=== PATIENT | female | born 1990 | race Caucasian/White ===

== ENCOUNTER 2018-06-03 16:20 | Inpatient (IN) | payer BC ==
[2018-06-03] MEDS ORDERED: Water For Irrigation,Sterile 1,000 ML Container IRR PRN (16:30)
[2018-06-03] MEDS ORDERED: Tranexamic Acid 1,000 MG in Sodium Chloride 0.9% 100 ML IV PRN (16:30)
[2018-06-03] MEDS ORDERED: Misoprostol 200 MCG Tab PO PRN (16:30)
[2018-06-03] MEDS ORDERED: Sodium Chloride 0.9% 2.5 ML Syringe FLUSH PRN (16:30)
[2018-06-03] MEDS ORDERED: Butorphanol 1 MG/ML SDV IVPUSH PRN (16:30)
[2018-06-03] MEDS ORDERED: Carboprost Tromethamine 250 MCG/1 ML Amp IM PRN (16:30)
[2018-06-03] MEDS ORDERED: Sodium Chloride 0.9% 10 ML Syringe FLUSH PRN (16:30)
[2018-06-03] MEDS ORDERED: Methylergonovine 0.2 MG/1 ML Amp IM PRN (16:30)
[2018-06-03] MEDS ORDERED: Lidocaine 1% 50 ML MDV INJECT PRN (16:30)
[2018-06-03] MEDS ORDERED: Ampicillin 2 GM in Sodium Chloride 0.9% 100 ML IV ONE (16:30)
[2018-06-03] MEDS ORDERED: Nalbuphine 10 MG/ML 10 ML MDV IVPUSH PRN (16:30)
[2018-06-03] MEDS ORDERED: Misoprostol 25 MCG (1/4 of 100 MCG) Tab VAG PRN ×2 (16:32→18:26)
[2018-06-03] MEDS ORDERED: Terbutaline 1 MG/ML SDV SUBCUT PRN (16:32)
[2018-06-03] MEDS ORDERED: Misoprostol 25 MCG (1/4 of 100 MCG) Tab VAG SCH (16:45)
[2018-06-03] MEDS ORDERED: Oxytocin/0.9 % Sodium Chloride 30 UNIT/500 ML BAG IV SCH (16:45)
[2018-06-03] MEDS: Lactated Ringers 1,000 ML IV SCH (17:27)
[2018-06-03] MEDS ORDERED: Ampicillin 2 GM AdvVial IV ONE (17:37)
[2018-06-03] MEDS: Ampicillin 1 GM in Sodium Chloride 0.9% 50 ML IV SCH (21:32)
[2018-06-04] MEDS: Lactated Ringers 1,000 ML IV SCH ×2 (01:07→05:32)
--- NOTE | 2018-06-04 01:21 | PCM.PREANE ---
Preanesthetic Assessment - Anesthesia/Transfusion/Family Hx Anesthesia History: Prior Anesthesia Without Reaction Family History of Anesthesia Reaction: No Transfusion History: No Prior Transfusion(s) - Review of Systems General: No Symptoms Pulmonary: No Symptoms Cardiovascular: No Symptoms Gastrointestinal: No Symptoms Neurological: No Symptoms Other: Reports: None (Denies any personal or family hx of bleeding or clotting problems) - Physical Assessment Height: 1.71 m Weight: 80.739 kg ASA Class: 2 Mental Status: Alert & Oriented x3 Airway Class: Mallampati = 2 Dentition: Reports: Normal Dentition ROM/Head Extension: Full - Lab Values: Laboratory Last Values WBC 11.81 K/uL (4.0-11.0) H 06/03/18 16:47 RBC 4.18 M/uL (4.30-5.90) L 06/03/18 16:47 Hgb 12.4 g/dL (12.0-16.0) 06/03/18 16:47 Hct 35.9 % (36.0-46.0) L 06/03/18 16:47 MCV 85.9 fL (80.0-98.0) 06/03/18 16:47 MCH 29.7 pg (27.0-32.0) 06/03/18 16:47 MCHC 34.5 g/dL (31.0-37.0) 06/03/18 16:47 RDW Std Deviation 42.3 fl (28.0-62.0) 06/03/18 16:47 RDW Coeff of Jennifer 14 % (11.0-15.0) 06/03/18 16:47 Plt Count 154 K/uL (150-400) 06/03/18 16:47 MPV 11.70 fL (7.40-12.00) 06/03/18 16:47 Nucleated RBC % 0.0 /100WBC 06/03/18 16:47 Nucleated RBCs # 0 K/uL 06/03/18 16:47 Blood Type O POSITIVE 06/03/18 16:47 Antibody Screen NEGATIVE 06/03/18 16:47 - Allergies Allergies/Adverse Reactions: Allergies Allergy/AdvReac Type Severity Reaction Status Date / Time No Known Allergies Allergy Verified 06/03/18 16:29 - Acknowledgements Anesthesia Type Planned: Epidural Pt an Appropriate Candidate for the Planned Anesthesia: Yes Alternatives and Risks of Anesthesia Discussed w Pt/Guardian: Yes Pt/Guardian Understands and Agrees with Anesthesia Plan: Yes PreAnesthesia Questionnaire HEENT History: Reports: None Cardiovascular History: Reports: Other (See Below) Other Cardiovascular History: palpitations Respiratory History: Reports: None Gastrointestinal History: Reports: None Genitourinary History: Reports: None STEEL HE[employer] History: Reports: Musculoskeletal History: Reports: Back Pain, Chronic, Fracture Neurological History: Reports: Concussion Psychiatric History: Reports: Anxiety, Depression Endocrine/Metabolic History: Reports: None Hematologic History: Reports: None Immunologic History: Reports: None Oncologic (Cancer) History: Reports: None Dermatologic History: Reports: None - Infectious Disease History Infectious Disease History: Reports: Chicken Pox - Past Surgical History HEENT Surgical History: Reports: Adenoidectomy, Oral Surgery, Tonsillectomy GI Surgical History: Reports: None Female Surgical History: Reports: None Neurological Surgical History: Reports: None Musculoskeletal Surgical History: Reports: ORIF - SUBSTANCE USE Smoking Status *Q: Never Smoker Second Hand Smoke Exposure: No Recreational Drug Use History: No - CURRENT (IN HOUSE) MEDS Current Meds: Current Medications Butorphanol Tartrate (Stadol) 1 mg IVPUSH Q1H PRN PRN Reason: Pain Carboprost Tromethamine (Hemabate Ds) 250 mcg IM ASDIRECTED PRN PRN Reason: Post Hemorrhage Lactated Ringer's (Ringers, Lactated) 1,000 mls @ 150 mls/hr IV ASDIRECTED LEONID Last Admin: 06/04/18 01:07 Dose: 999 mls/hr Tranexamic Acid 1,000 mg/ (Sodium Chloride) 110 mls @ 660 mls/hr IV ONETIME PRN PRN Reason: Bleeding Oxytocin/Sodium Chloride (Oxytocin 30 Unit/500 Ml-Ns) 30 unit in 500 mls @ 2 mls/hr IV TITRATE LEONID; Protocol Ampicillin Sodium 1 gm/ Sodium (Chloride) 50 mls @ 100 mls/hr IV Q4H [facility] Last Admin: 06/03/18 21:32 Dose: 100 mls/hr Lidocaine HCl (Xylocaine 1%) 50 ml INJECT .ONCE PRN PRN Reason: Laceration repair Methylergonovine Maleate (Methergine) 0.2 mg IM ASDIRECTED PRN PRN Reason: Post Hemorrhage Misoprostol (Cytotec) 200 mcg PO .ONCE PRN PRN Reason: Post Hemorrhage Misoprostol (Cytotec) 25 mcg VAG .ONCE LEONID Last Admin: 06/03/18 17:28 Dose: 25 mcg Misoprostol (Cytotec) 25 mcg VAG Q6H PRN PRN Reason: Other Nalbuphine HCl (Nubain) 10 mg IVPUSH Q1H PRN PRN Reason: Pain (severe 7-10) Sodium Chloride (Saline Flush) 10 ml FLUSH ASDIRECTED PRN PRN Reason: Keep Vein Open Sodium Chloride (Saline Flush) 2.5 ml FLUSH ASDIRECTED PRN PRN Reason: Keep Vein Open Sterile Water (Sterile Water For Irrigation) 1,000 ml IRR ASDIRECTED PRN PRN Reason: delivery Terbutaline Sulfate (Brethine) 0.25 mg SUBCUT ASDIRECTED PRN PRN Reason: Tacysystole Discontinued Medications Ampicillin Sodium (Ampicillin) Confirm Administered Dose 2 gm IV .STK-MED ONE Stop: 06/03/18 17:38 Ampicillin Sodium 2 gm/ Sodium (Chloride) 100 mls @ 200 mls/hr IV ONETIME ONE Stop: 06/03/18 16:59 Last Admin: 06/03/18 17:30 Dose: 200 mls/hr Fentanyl/Bupivacaine HCl (Cmlmmhfg-Lrhep-Gf 2 Mcg/Ml-0.125%) Confirm Administered Dose 100 mls @ as directed EP .STK-MED ONE Stop: 06/04/18 00:43
[2018-06-04] MEDS: Ampicillin 1 GM in Sodium Chloride 0.9% 50 ML IV SCH ×2 (01:46→05:26)
[2018-06-04] MEDS ORDERED: Ondansetron 4 MG/2 ML SDV IVPUSH ONE (06:50)
--- NOTE | 2018-06-04 07:47 | PCM.DEL ---
L & D Note - General Info Date of Service: 06/04/18 - Delivery Note Labor: Induced by Oxytocin Cervical Ripening Method: Misoprostil Delivery Outcome: Livebirth Delivery Method: Spontaneous Vaginal Delivery-Single Presentation: Left Occiput Anterior (AYO) Nuchal Cord: None Prep: Other Anesthesia Type: Epidural Amniotic Fluid Description: Clear Episiotomy Type: None Laceration: 2nd Degree Suture type: Vicryl Suture size: 3-0 Placenta: Intact, Spontaneous Cord: 3 Vessels Resuscitation Needed: No [place]: Suctioned Score 1 min: 9 Score 5 min: 9 Post Delivery Events: Other (see below) (uterine exploration for trailing membranes) Induction Criteria - Murcia Score Murcia Score Dilation: 1-2 cm Murcia Score Effacement: 40-50% Murcia Score Infant's Station: -2 Murcia Score Consistency: Medium [place] Score Cervix Position: Midposition Murcia Score Total: 5 Murcia Score Presenting Part: Reports: Cephalic - Induction Gestational Age >/= 39 wks: Yes Estimated Pelvis: Reports: Adequate Reassuring Monitoring Strip: Yes Absence of Tachy Systole: Yes - General Info Date of Service: 06/04/18 - Patient Data Weight - Most Recent: 80.739 kg Lab Results Last 24 Hours: Laboratory Results - last 24 hr 06/03/18 06/03/18 Range/Units 16:47 16:47 WBC 11.81 H (4.0-11.0) K/uL RBC 4.18 L (4.30-5.90) M/uL Hgb 12.4 (12.0-16.0) g/dL Hct 35.9 L (36.0-46.0) % MCV 85.9 (80.0-98.0) fL MCH 29.7 (27.0-32.0) pg MCHC 34.5 (31.0-37.0) g/dL RDW Std Deviation 42.3 (28.0-62.0) fl RDW Coeff of Jennifer 14 (11.0-15.0) % Plt Count 154 (150-400) K/uL MPV 11.70 (7.40-12.00) fL Nucleated RBC % 0.0 /100WBC Nucleated RBCs # 0 K/uL Blood Type O POSITIVE Antibody Screen NEGATIVE Med Orders - Current: Current Medications Butorphanol Tartrate (Stadol) 1 mg IVPUSH Q1H PRN PRN Reason: Pain Carboprost Tromethamine (Hemabate Ds) 250 mcg IM ASDIRECTED PRN PRN Reason: Post Hemorrhage Lactated Ringer's (Ringers, Lactated) 1,000 mls @ 150 mls/hr IV ASDIRECTED [facility] Last Admin: 06/04/18 05:32 Dose: 150 mls/hr Tranexamic Acid 1,000 mg/ (Sodium Chloride) 110 mls @ 660 mls/hr IV ONETIME PRN PRN Reason: Bleeding Oxytocin/Sodium Chloride (Oxytocin 30 Unit/500 Ml-Ns) 30 unit in 500 mls @ 2 mls/hr IV TITRATE LEONID; Protocol Last Titration: 06/04/18 04:13 Dose: 8 munits/min, 8 mls/hr Ampicillin Sodium 1 gm/ Sodium (Chloride) 50 mls @ 100 mls/hr IV Q4H [facility] Last Admin: 06/04/18 05:26 Dose: 100 mls/hr Lidocaine HCl (Xylocaine 1%) 50 ml INJECT .ONCE PRN PRN Reason: Laceration repair Methylergonovine Maleate (Methergine) 0.2 mg IM ASDIRECTED PRN PRN Reason: Post Hemorrhage Misoprostol (Cytotec) 200 mcg PO .ONCE PRN PRN Reason: Post Hemorrhage Misoprostol (Cytotec) 25 mcg VAG .ONCE [facility]ONID Last Admin: 06/03/18 17:28 Dose: 25 mcg Misoprostol (Cytotec) 25 mcg VAG Q6H PRN PRN Reason: Other Nalbuphine HCl (Nubain) 10 mg IVPUSH Q1H PRN PRN Reason: Pain (severe 7-10) Sodium Chloride (Saline Flush) 10 ml FLUSH ASDIRECTED PRN PRN Reason: Keep Vein Open Sodium Chloride (Saline Flush) 2.5 ml FLUSH ASDIRECTED PRN PRN Reason: Keep Vein Open Sterile Water (Sterile Water For Irrigation) 1,000 ml IRR ASDIRECTED PRN PRN Reason: delivery Terbutaline Sulfate (Brethine) 0.25 mg SUBCUT ASDIRECTED PRN PRN Reason: Tacysystole Discontinued Medications Ampicillin Sodium (Ampicillin) Confirm Administered Dose 2 gm IV .STK-MED ONE Stop: 06/03/18 17:38 Ampicillin Sodium 2 gm/ Sodium (Chloride) 100 mls @ 200 mls/hr IV ONETIME ONE Stop: 06/03/18 16:59 Last Admin: 06/03/18 17:30 Dose: 200 mls/hr Fentanyl/Bupivacaine HCl (Bkjsmeec-Wqaua-Mx 2 Mcg/Ml-0.125%) Confirm Administered Dose 100 mls @ as directed EP .STK-MED ONE Stop: 06/04/18 00:43 Ondansetron HCl (Zofran) 4 mg IVPUSH ONETIME ONE Stop: 06/04/18 06:51 - Problem List Review Problem List Initiated/Reviewed/Updated: Yes - My Orders Last 24 Hours: My Active Orders 06/03/18 16:30 Patient Status [ADT] Routine Heart Tones [RC] CONTINUOUS Non Stress Test [RC] PER UNIT ROUTINE May Shower [RC] ASDIRECTED Notify Provider [RC] PRN Up ad Estrella [RC] ASDIRECTED Vaginal Exam [RC] PRN Vital Signs [RC] PER UNIT ROUTINE Butorphanol [Stadol] 1 mg IVPUSH Q1H PRN Carboprost Tromethamine [Hemabate DS] 250 mcg IM ASDIRECTED PRN Lactated Ringers [Ringers, Lactated] 1,000 ml IV ASDIRECTED Lidocaine 1% [Xylocaine 1%] 50 ml INJECT .ONCE PRN Methylergonovine [Methergine] 0.2 mg IM ASDIRECTED PRN Misoprostol [Cytotec] 200 mcg PO .ONCE PRN Nalbuphine [Nubain] 10 mg IVPUSH Q1H PRN Sodium Chloride 0.9% [Saline Flush] 10 ml FLUSH ASDIRECTED PRN Sodium Chloride 0.9% [Saline Flush] 2.5 ml FLUSH ASDIRECTED PRN Tranexamic Acid [Cyklokapron] 1,000 mg Sodium Chloride 0.9% [Normal Saline] 100 ml IV ONETIME Water For Irrigation,Sterile [Sterile Water for Irrigation] 1,000 ml IRR ASDIRECTED PRN Scalp Electrode [WOMSER] Per Unit Routine Peripheral IV Insertion Adult [OM.PC] Routine Resuscitation Status Routine 06/03/18 16:32 Bedrest Bathroom Privileges [RC] ASDIRECTED Communication Order [RC] ASDIRECTED Communication Order [RC] ASDIRECTED Communication Order [RC] ASDIRECTED Notify Provider [RC] PRN Notify Provider [RC] PRN Notify Provider [RC] STAT Oxygen Therapy [RC] ASDIRECTED Vaginal Exam [RC] PRN Vital Signs [RC] PER UNIT ROUTINE Terbutaline [Brethine] 0.25 mg SUBCUT ASDIRECTED PRN 06/03/18 16:45 Misoprostol [Cytotec] 25 mcg VAG .ONCE Oxytocin/0.9 % Sodium Chloride [Oxytocin 30 Unit/500 ML-NS] 30 unit in 500 ml IV TITRATE Medication Administration Instruction [OM.PC] Q3H 06/03/18 18:26 Misoprostol [Cytotec] 25 mcg VAG Q6H PRN 06/03/18 21:30 Ampicillin 1 gm Sodium Chloride 0.9% [Normal Saline] 50 ml IV Q4H 06/03/18 Dinner Clear Liquid Diet [DIET]
[2018-06-04] MEDS ORDERED: Benzocaine/Menthol 20%-0.5% Spray 78 GM Cannister TOP PRN (07:49)
[2018-06-04] MEDS ORDERED: Methylergonovine 0.2 MG/1 ML Amp IM PRN (07:49)
[2018-06-04] MEDS ORDERED: Docusate Sodium 100 MG Cap PO PRN (07:49)
[2018-06-04] MEDS ORDERED: Acetaminophen 500 MG Tab PO PRN ×2 (07:49)
[2018-06-04] MEDS ORDERED: Ibuprofen 400 MG Tab PO PRN (07:49)
[2018-06-04] MEDS ORDERED: Bisacodyl 10 MG Supp RECTAL PRN (07:49)
[2018-06-04] MEDS ORDERED: oxyCODONE 5 MG Tab PO PRN (07:49)
[2018-06-04] MEDS ORDERED: Lanolin 100% Cream 7 GM Tube TOP PRN (07:49)
[2018-06-04] MEDS ORDERED: Witch Hazel Medicated Pads 40/Jar TOP PRN (07:49)
[2018-06-04] MEDS: ceFAZolin 1 GM in Premix Bag 1 BAG IV SCH ×2 (08:55→17:09)
--- NOTE | 2018-06-04 13:04 | OR ---
SURGEON: Oumou Mackenzie M.D. DATE OF PROCEDURE: 06/04/2018 PREOPERATIVE DIAGNOSES: 1. 39 and 1/7 week intrauterine . 2. Decreased movement. 3. pyelectasis. POSTOPERATIVE DIAGNOSES: 1. 39 and 1/7 week intrauterine . 2. Decreased movement. 3. pyelectasis. PROCEDURES: 1. Cytotec and Pitocin induction of labor. 2. Term spontaneous vaginal delivery. 3. Repair of second-degree laceration. ANESTHESIA: Epidural. ESTIMATED BLOOD LOSS: Less than 300 mL. FINDINGS: Live born male, scores 9 and 9. Weight is pending at the time of dictation. COMPLICATIONS: None known. DISPOSITION: Stable to recovery. BRIEF HISTORY: This is a 27-year-old female, she is G2, P1-0-0-1. She presents at 39 weeks' gestation for appointment in the clinic. She reports significantly decreased movement over the last 2 days. Biophysical profile and NST were obtained. However, as she is 39 weeks' gestation, fetus does have a bilateral pyelectasis greater than 10 mm, decision was made to proceed with induction of labor. She was initially 1 cm, 50%, -2 station. She received 1 dose of Cytotec. With that she was 2 cm, 50%, and -2 station. Pitocin was initiated. She spontaneously ruptured. She received group B Strep prophylaxis. She received an epidural for pain control. She had category 1 heart tones throughout labor. She progressed to complete. DESCRIPTION OF PROCEDURE: With the patient in dorsal lithotomy position, the patient pushed over 2 contractions to a 5+ station, at which time the head was delivered spontaneously and atraumatically over the perineum with support with subsequent delivery of the infant's shoulders and body without any difficulty. The was bulb suctioned by nose and mouth. Cord was clamped x2 and cut after it had ceased to pulsate and the was handed to the mother in the presence of the nurse attending delivery. The infant was a liveborn male, scores 9 and 9. Weight is pending at the time of dictation. Cord blood was collected for cord ABGs as well as routine cord blood sampling. Pitocin was initiated after delivery of the to assist with delivery of the placenta, which was delivered spontaneously, Schultze with trailing membranes. The membranes were grasped with a ring forceps and rotated, however, I felt there still may be some membranes left, therefore uterine exploration was performed with minimal remaining membranes. She was already on antibiotics and they will be continued for 24 hours. The second-degree perineal laceration was repaired with running locked suture of 3-0 Vicryl with a running locked suture for the vaginal mucosa, a deep running suture of the same for the perineum and a running subcuticular suture for the skin. There were no periurethral, vaginal sidewall, cervical, or rectal lacerations. EBL was less than 300 mL. There were no known complications. Mother and baby are in LDRP in good condition. SOHAIL / GILSON /[id number]
--- NOTE | 2018-06-04 14:50 | PCM48HPAN ---
Post Anesthesia Note - EVALUATION WITHIN 48HRS OF ANESTHETIC Vital Signs in Normal Range: Yes Patient Participated in Evaluation: Yes Respiratory Function Stable: Yes Airway Patent: Yes Cardiovascular Function Stable: Yes Hydration Status Stable: Yes Pain Control Satisfactory: Yes Nausea and Vomiting Control Satisfactory: Yes Mental Status Recovered: Yes
[2018-06-04] MEDS: Ibuprofen 800 MG Tab PO PRN (17:12)
[2018-06-05] MEDS: Ibuprofen 800 MG Tab PO PRN (01:07)
[2018-06-05] MEDS: ceFAZolin 1 GM in Premix Bag 1 BAG IV SCH (01:11)
--- NOTE | 2018-06-05 11:36 | PCM.PNPP ---
- General Info Date of Service: 06/05/18 Admission Dx/Problem (Free Text): PPD #1, vaginal delivery Functional Status: Reports: Pain Controlled, Tolerating Diet, Ambulating, Urinating - Review of Systems General: Denies: Fever HEENT: Denies: Headaches Pulmonary: Denies: Shortness of Breath, Pleuritic Chest Pain Cardiovascular: Denies: Chest Pain, Palpitations Gastrointestinal: Denies: Abdominal Pain Genitourinary: Denies: Dysuria, Incontinence, Retention Psychiatric: Denies: Depression, Mood Lability, Anxiety - General Info Date of Service: 06/05/18 - Patient Data Vital Signs - Most Recent: Last Vital Signs Temp 36.6 C 06/05/18 07:00 Pulse 64 06/05/18 07:00 Resp 14 06/05/18 07:00 BP 92/47 L 06/05/18 07:00 Pulse Ox 98 06/05/18 07:00 Weight - Most Recent: 178 lb Lab Results - Last 24 Hours: Laboratory Results - last 24 hr 06/05/18 Range/Units 05:30 Hgb 10.8 L (12.0-16.0) g/dL Hct 31.9 L (36.0-46.0) % Med Orders - Current: Current Medications Acetaminophen (Tylenol Extra Strength) 500 mg PO Q4H PRN PRN Reason: Pain Acetaminophen (Tylenol Extra Strength) 1,000 mg PO Q4H PRN PRN Reason: Pain Benzocaine/Menthol (Dermoplast Pain Relief 20%-0.5% [place]) 78 gm TOP ASDIRECTED PRN PRN Reason: Perineal Comfort Measure Bisacodyl (Dulcolax) 10 mg RECTAL .ONCE PRN PRN Reason: Constipation Docusate Sodium (Colace) 100 mg PO BID PRN PRN Reason: Constipation Emollient Ointment (Lansinoh Hpa) 0 gm TOP ASDIRECTED PRN PRN Reason: Sore Nipples Last Admin: 06/04/18 17:11 Dose: 1 tube Ibuprofen (Motrin) 400 mg PO Q4H PRN PRN Reason: Pain Ibuprofen (Motrin) 800 mg PO Q6H PRN PRN Reason: Pain Last Admin: 06/05/18 01:07 Dose: 800 mg Methylergonovine Maleate (Methergine) 0.2 mg IM .ONCE PRN PRN Reason: Excessive Vaginal Bleeding Oxycodone HCl (Oxycodone) 5 mg PO Q2H PRN PRN Reason: Pain Witch Kailee (Tucks) 1 pad TOP ASDIRECTED PRN PRN Reason: comfort care Discontinued Medications Ampicillin Sodium (Ampicillin) Confirm Administered Dose 2 gm IV .STK-MED ONE Stop: 06/03/18 17:38 Butorphanol Tartrate (Stadol) 1 mg IVPUSH Q1H PRN PRN Reason: Pain Carboprost Tromethamine (Hemabate Ds) 250 mcg IM ASDIRECTED PRN PRN Reason: Post Hemorrhage Ampicillin Sodium 2 gm/ Sodium (Chloride) 100 mls @ 200 mls/hr IV ONETIME ONE Stop: 06/03/18 16:59 Last Admin: 06/03/18 17:30 Dose: 200 mls/hr Lactated Ringer's (Ringers, Lactated) 1,000 mls @ 150 mls/hr IV ASDIRECTED [facility] Last Admin: 06/04/18 05:32 Dose: 150 mls/hr Tranexamic Acid 1,000 mg/ (Sodium Chloride) 110 mls @ 660 mls/hr IV ONETIME PRN PRN Reason: Bleeding Oxytocin/Sodium Chloride (Oxytocin 30 Unit/500 Ml-Ns) 30 unit in 500 mls @ 2 mls/hr IV TITRATE [facility]; Protocol Last Titration: 06/04/18 07:19 Dose: 500 munits/min, 500 mls/hr Ampicillin Sodium 1 gm/ Sodium (Chloride) 50 mls @ 100 mls/hr IV Q4H [facility] Last Admin: 06/04/18 05:26 Dose: 100 mls/hr Fentanyl/Bupivacaine HCl (Kasvkijp-Qcqfd-Yv 2 Mcg/Ml-0.125%) Confirm Administered Dose 100 mls @ as directed EP .STK-MED ONE Stop: 06/04/18 00:43 Cefazolin Sodium/Dextrose 1 gm (/ Premix) 50 mls @ 100 mls/hr IV Q8H [facility] Stop: 06/05/18 00:44 Last Admin: 06/05/18 01:11 Dose: 100 mls/hr Lidocaine HCl (Xylocaine 1%) 50 ml INJECT .ONCE PRN PRN Reason: Laceration repair Methylergonovine Maleate (Methergine) 0.2 mg IM ASDIRECTED PRN PRN Reason: Post Hemorrhage Misoprostol (Cytotec) 200 mcg PO .ONCE PRN PRN Reason: Post Hemorrhage Misoprostol (Cytotec) 25 mcg VAG .ONCE LEONID Last Admin: 06/03/18 17:28 Dose: 25 mcg Misoprostol (Cytotec) 25 mcg VAG Q6H PRN PRN Reason: Other Nalbuphine HCl (Nubain) 10 mg IVPUSH Q1H PRN PRN Reason: Pain (severe 7-10) Ondansetron HCl (Zofran) 4 mg IVPUSH ONETIME ONE Stop: 06/04/18 06:51 Last Admin: 06/04/18 07:05 Dose: 4 mg Sodium Chloride (Saline Flush) 10 ml FLUSH ASDIRECTED PRN PRN Reason: Keep Vein Open Sodium Chloride (Saline Flush) 2.5 ml FLUSH ASDIRECTED PRN PRN Reason: Keep Vein Open Sterile Water (Sterile Water For Irrigation) 1,000 ml IRR ASDIRECTED PRN PRN Reason: delivery Terbutaline Sulfate (Brethine) 0.25 mg SUBCUT ASDIRECTED PRN PRN Reason: Tacysystole - Interaction Disposition, : in Room with Family Infant Interaction: Holding Infant Feeding: Breastfed ; Nursed Well, Continues to Breastfeed Support Person: - Recovery Exam Fundal Tone: Firm Fundal Level: At Umbilicus Fundal Placement: Midline Lochia Amount: Scant Lochia Color: Rubra/Red Perineum Description: Intact, Minimal Bruising/Swelling Episiotomy/Laceration: None Bladder Status: Nonpalpable - Exam General: Alert Lungs: Clear to Auscultation Cardiovascular: Regular Rate GI/Abdominal Exam: Normal Bowel Sounds Extremities: Non-Tender, Pedal Edema Skin: Warm Psy/Mental Status: Alert, Normal Affect, Normal Mood - Problem List & Annotations (1) Vaginal delivery SNOMED Code(s): 384674607 Code(s): O80 - ENCOUNTER FOR FULL-TERM UNCOMPLICATED DELIVERY Status: Acute Current Visit: Yes - Problem List Review Problem List Initiated/Reviewed/Updated: Yes - Assessment Assessment:: PPD#1 s/p , stable and afebrile Clinically stable for discharge today - Plan Plan:: Discharge instructions reviewed. Nothing in the vagina for 6 weeks Bleeding and infection precautions reviewed Continue PNV OTC pain meds for pain as needed Follow up in [facility] in 6 weeks
== END 2018-06-05 12:35 | disposition home or self-care (01) | DRG 560 ==
LOC: MW.OBCHECK 16:20 → MW.OB 16:23 → MW.OBCHECK 16:30 → OBSVTOIN 06-04 07:18
PROVIDERS: ADMIT Obstetrics & Gynecology; ATTEND Obstetrics & Gynecology
PROC: 10E0XZZ Delivery of Products of Conception, External Approach (ICD-10-PCS; principal; 2018-06-04)
PROC: 3E0P7VZ Introduction of Hormone into Female Reproductive, Via Natural or Artificial Opening (ICD-10-PCS; 2018-06-04)
PROC: 3E033VJ Introduction of Other Hormone into Peripheral Vein, Percutaneous Approach (ICD-10-PCS; 2018-06-04)
PROC: 0KQM0ZZ Repair Perineum Muscle, Open Approach (ICD-10-PCS; 2018-06-04)
DX: O36.8130 Decreased fetal movements, third trimester, not applicable or unspecified (principal); O70.1 Second degree perineal laceration during delivery; O35.8XX0 Maternal care for other (suspected) fetal abnormality and damage, not applicable or unspecified; Z3A.39 39 weeks gestation of pregnancy; Z37.0 Single live birth
CPT/HCPCS: 36415; 51702; 59025; 59409; 82803; 85014; 85018; 85027; 86850; 86900; 86901; A9270-GY; J0290; J0690; J2405; J2590; J7030; J7050; J7120